=== PATIENT | female | born 1960 | race Caucasian/White ===

== ENCOUNTER 2019-09-23 12:14 | Inpatient (IN) | payer SELFPAY ==
[2019-09-23] MEDS ORDERED: Ondansetron 4 mg VIAL 2 MG/ML 2 ml VIAL IV ONE (12:35)
[2019-09-23] MEDS ORDERED: NS 0.9% 1000 ml BAG 1,000 ML IV ONE ×3 (12:37→20:05)
[2019-09-23 13:58] LABS: ABS Lymphocytes 0.7 10^3/ul (1.0-4.8); ABS Monocytes 0.7 10^3/ul (0-0.8); Hematocrit 42 % (35-47); Hemoglobin 14.6 g/dL (12.0-16.0); Lymphocyte % 5.8 %; Mean Corpuscular HGB Conc 35 g/dL (31-36); Mean Corpuscular Hemoglobin 32 pg (27-31); Mean Corpuscular Volume 91 fL (80-97); Mean Platelet Volume 7.7 fL (7.4-10.4); Platelet Count 212 10^3/uL (150-450); Red Blood Count 4.61 10^6 /uL (3.70-4.87); Red Cell Distribution Width 13 % (10-15); White Blood Count 11.5 10^3/uL (3.5-10.8)
[2019-09-23 14:02] LABS: INR 1.14 (0.82-1.09)
[2019-09-23 14:21] LABS: Albumin 4.6 g/dL (3.2-5.2); Albumin/Globulin Ratio 1.5 (1-3); BUN/Creatinine Ratio 14.9 (8-20); C Reactive Protein 82.26 mg/L (<8.01); Calcium 10.9 mg/dL (8.6-10.3); EGFR African American 80.9 (>60); EGFR Non-African American 66.9 (>60); Globulin 3.1 g/dL (2-4); Potassium 3.7 mmol/L (3.5-5.0); Total Bilirubin 0.7 mg/dL (0.2-1.0); Total Protein 7.7 g/dL (6.4-8.9)
[2019-09-23 14:23] LABS: Urine Appearance Clear; Urine Bilirubin Negative (Negative); Urine Blood 2+ (Negative); Urine Color Amber; Urine Glucose Negative (Negative); Urine Ketones 1+ (Negative); Urine Nitrite Negative (Negative); Urine Protein Negative (Negative); Urine Specific Gravity 1.019 (1.010-1.030); Urine Urobilinogen Negative (Negative)
[2019-09-23 14:26] LABS: Urine Bacteria 1+ (Absent); Urine Red Blood Cell 3+(>10/hpf) (Absent); Urine Squamous Epithelial Cell Present (Absent); Urine White Blood Cell 1+(6-10/hpf) (Absent)
[2019-09-23] MEDS ORDERED: Gentamicin ADULT (*) 40 MG/ML VIAL (2 ML VIAL = 80 MG) IVPB ONE (14:37)
[2019-09-23] MEDS ORDERED: cefTRIAXone(*) 2 GM ADDV.VIAL 2 GM in NS 0.9% 100 ml BAG 100 ML IVPB ONE (14:39)
[2019-09-23] MEDS ORDERED: Midazolam 10 mg/10 ml VIAL 1 mg/ml 10 ml VIAL (10 mg) ONE (15:21)
[2019-09-23] MEDS ORDERED: Lidocaine 2% PF 5 ML VIAL ONE (15:21)
[2019-09-23] MEDS ORDERED: Ondansetron 4 mg VIAL 2 MG/ML 2 ml VIAL ONE (15:21)
[2019-09-23] MEDS ORDERED: Ketamine HCL 50 mg/ml 10 ml VIAL (500 MG) ONE (15:21)
[2019-09-23] MEDS ORDERED: fentaNYL 100 mcg/2 ml 50 MCG/ML VIAL ONE (15:21)
[2019-09-23] MEDS ORDERED: Propofol 10 MG/ML 20 ML BTL ONE (15:21)
[2019-09-23] MEDS ORDERED: Dexamethasone IV 4 MG/ML VIAL 1 ml VIAL ONE (15:21)
[2019-09-23] MEDS ORDERED: Iohexol 180 (CONTRAST) 10 ML SDV IV ONE (15:23)
[2019-09-23] MEDS ORDERED: Iohexol 350 (CONTRAST) 500 ML MDV IV ONE (15:42)
[2019-09-23] MEDS ORDERED: Morphine 2 MG/ML SYRINGE IV PRN (16:48)
[2019-09-23] MEDS ORDERED: Senna TAB 8.6 mg TAB PO PRN (16:48)
[2019-09-23] MEDS ORDERED: Zosyn per Pharmacy NOTE FOLLOW UP SCH ×4 (17:00→19:00)
[2019-09-23] MEDS ORDERED: NS 0.9% 1000 ml BAG 1,000 ML IV SCH (17:45)
[2019-09-23] MEDS: NS 0.9% 1000 ml BAG 1,000 ML IV SCH (19:00)
[2019-09-23] MEDS: Morphine 2 MG/ML SYRINGE IV PRN (19:03)
[2019-09-23] MEDS: Ondansetron 4 mg VIAL 2 MG/ML 2 ml VIAL IV PRN ×2 (19:03→23:08)
[2019-09-23] MEDS: Heparin 5000 UNITS/ML VIAL(*) 1 ml vial SUBCUT SCH (20:29)
[2019-09-23] MEDS ORDERED: Piperacillin/Tazobac ADVAN(*) 3.375 GM in NS 0.9% 100 ml BAG 100 ML IVPB ONE (21:00)
[2019-09-24] MEDS: Ondansetron 4 mg VIAL 2 MG/ML 2 ml VIAL IV PRN ×4 (04:00→17:10)
[2019-09-24] MEDS ORDERED: Piperacillin/Tazobac ADVAN(*) 3.375 GM in NS 0.9% 100 ml BAG 100 ML IVPB ONE (09:00)
[2019-09-24] MEDS: Morphine 2 MG/ML SYRINGE IV PRN ×2 (14:15→17:20)
[2019-09-24] MEDS: Heparin 5000 UNITS/ML VIAL(*) 1 ml vial SUBCUT SCH ×2 (21:19→21:52)
[2019-09-24] MEDS: ZOSYN 3.375 GM Q8H per EXTENDED INFUSION IVPB SCH (21:21)
[2019-09-24] MEDS: ZOSYN 3.375 GM Q8H per EXTENDED INFUSION SCH (21:51)
[2019-09-24 23:24] LABS: Hematocrit 37 % (35-47); Hemoglobin 12.9 g/dL (12.0-16.0); Mean Corpuscular HGB Conc 34 g/dL (31-36); Mean Corpuscular Hemoglobin 31 pg (27-31); Mean Corpuscular Volume 91 fL (80-97); Red Cell Distribution Width 13 % (10-15); White Blood Count 10.1 10^3/uL (3.5-10.8)
[2019-09-24 23:25] LABS: ABS Lymphocytes 0.7 10^3/ul (1.0-4.8); ABS Monocytes 0.7 10^3/ul (0-0.8); Lymphocyte % 7.1 %; Platelet Count 163 10^3/uL (150-450)
[2019-09-24 23:26] LABS: Albumin 3.6 g/dL (3.2-5.2); Albumin/Globulin Ratio 1.5 (1-3); BUN/Creatinine Ratio 14.7 (8-20); EGFR Non-African American 79.4 (>60); Globulin 2.4 g/dL (2-4); Potassium 3.6 mmol/L (3.5-5.0); Total Bilirubin 0.5 mg/dL (0.2-1.0)
[2019-09-24] MEDS: NS 0.9% 1000 ml BAG 1,000 ML IV SCH (23:41)
[2019-09-25] MEDS: Heparin 5000 UNITS/ML VIAL(*) 1 ml vial SUBCUT SCH ×2 (04:56→14:47)
[2019-09-25] MEDS: ZOSYN 3.375 GM Q8H per EXTENDED INFUSION SCH ×2 (06:29→14:51)
[2019-09-25 06:46] LABS: ABS Lymphocytes 1.3 10^3/ul (1.0-4.8); ABS Monocytes 0.7 10^3/ul (0-0.8); Eosinophil % 0.2 %; Hematocrit 33 % (35-47); Hemoglobin 11.5 g/dL (12.0-16.0); Lymphocyte % 18.2 %; Mean Corpuscular HGB Conc 35 g/dL (31-36); Mean Corpuscular Hemoglobin 32 pg (27-31); Mean Corpuscular Volume 91 fL (80-97); Mean Platelet Volume 7.9 fL (7.4-10.4); Platelet Count 158 10^3/uL (150-450); Red Cell Distribution Width 13 % (10-15); White Blood Count 7.2 10^3/uL (3.5-10.8)
[2019-09-25 07:10] LABS: BUN/Creatinine Ratio 16.7 (8-20); EGFR African American 111.3 (>60); Potassium 3.3 mmol/L (3.5-5.0)
[2019-09-25] MEDS: KCL 20 MEQ/100 ML IVPREMIX 20 MEQ/100 ML BAG IV SCH ×3 (08:51→18:04)
[2019-09-25 09:10] LABS: Magnesium 1.6 mg/dL (1.9-2.7)
[2019-09-25] MEDS ORDERED: Magnesium Sulf 4 GM/100 ML IV 4,000 MG/100 ML BAG IVPB ONE (13:00)
[2019-09-25] MEDS: NS 0.9% 1000 ml BAG 1,000 ML IV SCH (18:05)
[2019-09-26] MEDS: ZOSYN 3.375 GM Q8H per EXTENDED INFUSION SCH ×4 (00:27→23:21)
[2019-09-26] MEDS: Heparin 5000 UNITS/ML VIAL(*) 1 ml vial SUBCUT SCH ×4 (00:28→21:50)
[2019-09-26] MEDS: NS 0.9% 1000 ml BAG 1,000 ML IV SCH ×3 (02:09→23:22)
[2019-09-26 06:03] LABS: ABS Eosinophils 0.1 10^3/ul (0-0.6); ABS Lymphocytes 1.7 10^3/ul (1.0-4.8); ABS Monocytes 0.6 10^3/ul (0-0.8); Eosinophil % 2.1 %; Hematocrit 33 % (35-47); Hemoglobin 11.4 g/dL (12.0-16.0); Lymphocyte % 34.2 %; Mean Corpuscular HGB Conc 34 g/dL (31-36); Mean Corpuscular Hemoglobin 31 pg (27-31); Mean Corpuscular Volume 91 fL (80-97); Mean Platelet Volume 7.5 fL (7.4-10.4); Nucleated Red Blood Cells % 0.1; Platelet Count 182 10^3/uL (150-450); Red Blood Count 3.68 10^6 /uL (3.70-4.87); Red Cell Distribution Width 13 % (10-15); White Blood Count 5.1 10^3/uL (3.5-10.8)
[2019-09-26 06:13] LABS: BUN/Creatinine Ratio 10.9 (8-20); Calcium 8.9 mg/dL (8.6-10.3); EGFR African American 137.4 (>60); EGFR Non-African American 113.5 (>60); Potassium 3.7 mmol/L (3.5-5.0)
[2019-09-27] MEDS: Heparin 5000 UNITS/ML VIAL(*) 1 ml vial SUBCUT SCH (06:57)
[2019-09-27] MEDS: NS 0.9% 1000 ml BAG 1,000 ML IV SCH (06:57)
[2019-09-27] MEDS: ZOSYN 3.375 GM Q8H per EXTENDED INFUSION SCH (07:54)
[2019-09-27 08:11] VITALS: BP 150/78
== END 2019-09-27 11:45 | disposition home or self-care (01) | DRG 189 ==
LOC: ED 12:14 → MED 16:48
PROVIDERS: ADMIT Hospitalist; ATTEND Internal Medicine